=== PATIENT | male | born 1930 | race Hispanic/Latino ===

== ENCOUNTER 2018-04-13 07:18 | Inpatient (IN) | payer MEDICARE, MEDICAID ==
[2018-04-13 07:44] VITALS: BMI 28.3
[2018-04-13 08:17] LABS: BASO % 0.7 % (0.0-2.0); EOS # 0.1 K/uL (0.0-0.7); EOS % 2.2 % (0.0-4.0); LYMPH # 1.3 K/uL (1.0-4.3); LYMPH % 20.5 % (20.0-40.0); MEAN CELL VOLUME 90.3 fL (80.0-94.0); MEAN CORPUSCULAR HEMOGLOBIN 29.9 pg (27.0-31.0); MEAN CORPUSCULAR HGB CONC 33.1 g/dL (33.0-37.0); MEAN PLATELET VOLUME 9.1 fL (7.2-11.7); MONO # 0.5 K/uL (0.0-0.8); MONO % 7.9 % (0.0-10.0); NEUT # 4.4 K/uL (1.8-7.0); NEUT % 68.7 % (50.0-75.0); RBC 3.35 Mil/uL (4.40-5.90); RED CELL DISTRIBUTION WIDTH 14.8 % (11.5-14.5); WHITE BLOOD COUNT 6.4 K/uL (4.8-10.8)
[2018-04-13 08:33] LABS: ALBUMIN 3.5 g/dL (3.5-5.0); ALT/SGPT 15 U/L (21-72); AST/SGOT 16 U/L (17-59); BLOOD UREA NITROGEN 56 mg/dL (9-20); CALCIUM 8.9 mg/dl (8.6-10.4); GFR AFRICAN-AMERICAN 23; GFR NON-AFRICAN AMERICAN 19; LIPASE 162 U/L (23-300)
--- NOTE | 2018-04-13 08:37 | RAD ---
PROCEDURE: CHEST RADIOGRAPH, 1 VIEW HISTORY: Abdominal pain COMPARISON: None available. FINDINGS: LUNGS: The lungs are clear. PLEURA: No pneumothorax or pleural fluid seen. CARDIOVASCULAR: Normal. 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 VISUALIZED UPPER ABDOMEN: Normal. OTHER FINDINGS: None. IMPRESSION: No active pulmonary disease.
[2018-04-13 09:20] LABS: SQUAMOUS EPITHIAL < 1 /hpf (0-5); URINE BACTERIA MANY (<OCC); URINE BILIRUBIN NEGATIVE (NEGATIVE); URINE BLOOD 1+ (NEGATIVE); URINE CLARITY Hazy (Clear); URINE COLOR Yellow (YELLOW); URINE GLUCOSE (UA) NORMAL (Normal); URINE LEUKOCYTE ESTERASE 3+ Leu/uL (Negative); URINE PROTEIN 1+ mg/dL (NEGATIVE); URINE UROBILINOGEN NORMAL mg/dL (0.2-1.0)
--- NOTE | 2018-04-13 09:43 | C.PDOC ---
History Of Present Illness 87 y/o male, w/ PMhx of BPH, presents to the ER complaining of abdominal pain which has been present for the past 2 days. Patient states that the pain is located near the the umbilicus. Patient denies having nausea, vomiting, diarrhea , fever, chills, CP, and SOB. According to the family of patient, they discussed the case with Dr. Markel Johnson, urologist, who referred the patient to the ER. Time Seen by Provider: 04/13/18 07:23 Chief Complaint (Nursing): Abdominal Pain History Per: Patient History/Exam Limitations: no limitations Onset/Duration Of Symptoms: Days Current Symptoms Are (Timing): Still Present Severity: Moderate Past Medical History Reviewed: Historical Data, Nursing Documentation, Vital Signs Vital Signs: Last Vital Signs Temp 98.0 F 04/15/18 08:10 Pulse 61 04/15/18 08:10 Resp 20 04/15/18 08:10 BP 147/65 04/15/18 08:10 Pulse Ox 98 04/15/18 08:10 - Medical History PMH: Benign Prostatic Hyperplasia, Hypothyroidism, Multiple Sclerosis Surgical History: No Surg Hx - [facility] Procedures INSERT INDWELLING CATH (11/15/13) Family History: States: No Known Family Hx - Social History Hx Tobacco Use: No Hx Alcohol Use: No Hx Substance Use: No - Immunization History Hx Tetanus Toxoid Vaccination: No Hx Influenza Vaccination: Yes (2017) Hx Pneumococcal Vaccination: No Review Of Systems Except As Marked, All Systems Reviewed And Found Negative. Constitutional: Negative for: Fever, Chills Cardiovascular: Negative for: Chest Pain Respiratory: Negative for: Shortness of Breath Gastrointestinal: Positive for: Abdominal Pain. Negative for: Nausea, Vomiting , Diarrhea Physical Exam - Physical Exam Appears: Non-toxic, No Acute Distress Skin: Normal Color, Warm, Dry Head: Atraumatic, Normacephalic Eye(s): bilateral: Normal Inspection Nose: Normal Oral Mucosa: Moist Neck: Supple Chest: Symmetrical Cardiovascular: Rhythm Regular Respiratory: Normal Breath Sounds, No Rales, No Rhonchi, No Wheezing Gastrointestinal/Abdominal: Bowel Sounds ((+) bowel sounds), Soft, Tenderness ( tenderness to periumbilical region), No Guarding, No Rebound Neurological/Psych: Oriented x3, Normal Speech ED Course And Treatment - Laboratory Results Result Diagrams: 04/15/18 06:16 04/15/18 06:16 ECG: Interpreted By Me, Viewed By Me ECG Rhythm: Sinus Rhythm ECG Interpretation: Normal Interpretation Of ECG: NSR with normal intervals, normal axises, and no ST/ T wave abnormalities Rate From EC O2 Sat by Pulse Oximetry: 99 (RA) Pulse Ox Interpretation: Normal Medical Decision Making Medical Decision Making: Assessment: Abdominal Pain Plan: --Labs --UA --CT-Abd &Pelv. --CXR Updates: 7:45 AM Case discussed with Dr. Markel Johnson. Dr. Johnson will come to evaluate patient in ER. 12:00 PM Call placed to Dr. Johnson. Dr. Johnson is in a meeting , will call back. 12:30 PM Case discussed with Dr. Johnson. Dr. Johnson will come to see patient and place Cervantes Catheter. Disposition Discussed With Dr.: Shade Aparicio Doctor Will See Patient In The: ED Counseled Patient/Family Regarding: Studies Performed, Diagnosis - Disposition Disposition: HOSPITALIZED Disposition Time: 13:17 Condition: FAIR - Clinical Impression Clinical Impression: Abdominal pain, UTI (urinary tract infection), Hydroureter - Scribe Statement The provider has reviewed the documentation as recorded by the Darlineibe Claudio Summers Provider Attestation: All medical record entries made by the Darlineibsukumar were at my direction and personally dictated by me. I have reviewed the chart and agree that the record accurately reflects my personal performance of the history, physical exam, medical decision making, and the department course for this patient. I have also personally directed, reviewed, and agree with the discharge instructions and disposition.
--- NOTE | 2018-04-13 11:42 | CT ---
PROCEDURE: CT Abdomen and Pelvis without intravenous contrast HISTORY: abd pain COMPARISON: 03/11/2016 TECHNIQUE: Without contrast.. Contrast dose: 0 Radiation dose: Total exam DLP = 960.54 mGy-cm. This CT exam was performed using one or more of the following dose reduction techniques: Automated exposure control, adjustment of the mA and/or kV according to patient size, and/or use of iterative reconstruction technique. FINDINGS: LOWER THORAX: Minimal linear scar/ atelectasis left lower lobe. Interstitial coarsening both lower lobes common nonspecific. Small pericardial effusion. Mild cardiomegaly. LIVER: Unremarkable. No gross lesion or ductal dilatation. GALLBLADDER AND BILE DUCTS: Unremarkable. PANCREAS: Unremarkable. No gross lesion or ductal dilatation. SPLEEN: Unremarkable. ADRENALS: Unremarkable. No mass. KIDNEYS AND URETERS: Moderate right and severe left hydronephrosis. Severe left renal cortical thinning. No mass or calculus. Bilateral hydroureter. No ureteral calculus. The extent of hydronephrosis/ hydroureter is essentially unchanged since 03/11/2016. VASCULATURE: Unremarkable. No aortic aneurysm. BOWEL: Extensive retained feces in rectum. Diverticulosis of descending/sigmoid colon without evidence of diverticulitis. No evidence of bowel obstruction. APPENDIX: Unremarkable. Normal appendix. PERITONEUM: Left inguinal hernia containing only mesenteric fat. No bowel herniation. . No free fluid. No free air. LYMPH NODES: Unremarkable. No enlarged lymph nodes. BLADDER: Suboptimally distended. Diffusely thick-walled ,nonspecific. REPRODUCTIVE: TURP defect within normal size prostate. BONES: No acute fracture. Left hip prosthesis. OTHER FINDINGS: None. IMPRESSION: Thick walled bladder with bilateral hydroureteronephrosis. Extensive left renal cortical thickening. Left inguinal hernia containing only mesenteric fat. Small pericardial effusion common nonspecific. Status post TURP. Extensive retained feces in rectum. Left hip prosthesis.
--- NOTE | 2018-04-13 13:53 | CP.PCM.HP ---
<SegundoJaqueline GrewalEri - Last Filed: 04/13/18 18:27> History of Present Illness - History of Present Illness History of Present Illness: Code status: Full code CC: abdominal pain for 2 days HPI: 87-year-old male with past medical history of recurrent UTI, BPH, multiple sclerosis, depression, hypothyroidism who presents to the ED for evaluation of abdominal pain x 2 days. and daughter are at bedside assisting with history. Patient was diagnosed with MS 40 years ago, no longer takes medications , no longer follows with a neurologist. and daughter state he "has completed all regimens for MS and he doesn't want any of it anymore." Patient has bowel and bladder incontinence secondary to MS and is generally immobile requiring assistance from bed to wheelchair. and daughter report that patient often has UTIs which are treated with antibiotics with symptom resolution for about 1 week. Patient reports periumbilical abdominal pain for 2 days with no radiation. Patient recently completed 14-day course of Macrobid with no resolution of symptoms, but he reports subjectively feeling better. reports 2 days of cloudy urine, denies blood in urine. Patient also reports recent cough and mild constipation (no BM today, regularly has BM daily) . Patient denies fever/chills, chest pain, shortness of breath, nausea, vomiting , diarrhea, dizziness, weight change. Patient's daughter notes that he was diagnosed with depression and started on medication (Lexapro 10mg PO daily) about 1 year ago after the of his daughter due to cervical cancer. PMD: Dr. Zoey Quiñones Urologist: Dr. Therese Johnson Pharmacy: [facility] Past medical history: recurrent UTI, BPH, multiple sclerosis, depression, hypothyroidism Past surgical history: unknown prostate procedure 5 years ago, no complications ; left hip replacement 15 years ago Medications: tamsulosin 0.4mg PO daily, escitalopram 10mg PO daily, levothyroxine 100mcg PO daily, doxazosin 2mg PO daily, folic acid 1mg PO daily, ASA 81mg PO daily, trazodone 50mg PO daily, nasal spray, vitamin E Allergies: NKDA Family history: daughter () with history of cervical cancer; no known family history of cardiac disease Social history: former smoker (30+ years ago); denies drug/alcohol use; 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 absent: Constipation, Diarrhea, Nausea, Vomiting - Genitourinary Genitourinary: Urinary Incontinence. absent: Hematuria - Musculoskeletal Musculoskeletal: Other (immobile from the waist down ) - Neurological Neurological: absent: Headaches - Psychiatric Psychiatric: Depression Past Patient History - Past Social History Smoking Status: Former Smoker - NEUROLOGICAL Hx Multiple Sclerosis: Yes - ENDOCRINE/METABOLIC Hx Hypothyroidism: Yes - GENITOURINARY/GYNECOLOGICAL Hx Genitourinary Disorders: Yes - PSYCHIATRIC Hx Substance Use: No Meds Allergies/Adverse Reactions: Allergies Allergy/AdvReac Type Severity Reaction Status Date / Time No Known Allergies Allergy Verified 04/13/18 07:43 Physical Exam - Constitutional Appears: Non-toxic, No Acute Distress, Chronically Ill - Head Exam Head Exam: ATRAUMATIC, NORMAL INSPECTION - Eye Exam Eye Exam: EOMI, Normal appearance - ENT Exam ENT Exam: Mucous Membranes Dry - Respiratory Exam Respiratory Exam: Clear to Auscultation Bilateral, NORMAL BREATHING PATTERN - Cardiovascular Exam Cardiovascular Exam: REGULAR RHYTHM, +S1, +S2 - GI/Abdominal Exam GI & Abdominal Exam: Normal Bowel Sounds, Soft. absent: Tenderness - Extremities Exam Extremities exam: Negative for: tenderness - Neurological Exam Neurological exam: Alert, Oriented x3 - Expanded Neurological Exam Expanded Neuro motor strength exam: Left Lower Extremity: 0, Right Lower Extremity: 0 Coma Scale Eye Opening: SPONTANEOUS Coma Scale Motor Response: OBEYS COMMANDS - Psychiatric Exam Psychiatric exam: Flat Affect - Skin Skin Exam: Dry, Intact, Normal Color Additional comments: Skin intact - no ulcers seen on scarum or juan prominences Results - Vital Signs Recent Vital Signs: Last Vital Signs Temp 98.6 F 04/13/18 11:32 Pulse 59 L 04/13/18 11:32 Resp 17 04/13/18 11:32 BP 143/58 L 04/13/18 11:32 Pulse Ox 99 04/13/18 13:22 - Labs Result Diagrams: 04/13/18 08:12 04/13/18 08:12 Labs: Laboratory Results - last 24 hr 04/13/18 04/13/1818 08:12 08:12 09:07 WBC 6.4 RBC 3.35 L Hgb 10.0 L D Hct 30.2 L MCV 90.3 MCH 29.9 MCHC 33.1 RDW 14.8 H Plt Count 188 MPV 9.1 Neut % (Auto) 68.7 Lymph % (Auto) 20.5 [place] % (Auto) 7.9 Eos % (Auto) 2.2 Baso % (Auto) 0.7 Neut # (Auto) 4.4 Lymph # (Auto) 1.3 [place] # (Auto) 0.5 Eos # (Auto) 0.1 Baso # (Auto) 0.0 Sodium 144 Potassium 5.3 H Chloride 111 H Carbon Dioxide 23 Anion Gap 16 BUN 56 H Creatinine 3.1 H Est GFR ( Amer) 23 Est GFR (Non-Af Amer) 19 Random Glucose 106 Calcium 8.9 Total Bilirubin 0.5 AST 16 L ALT 15 L Alkaline Phosphatase 72 Troponin I < 0.0120 Total Protein 7.1 Albumin 3.5 Globulin 3.5 Albumin/Globulin Ratio 1.0 Lipase 162 Urine Color Yellow Urine Clarity Hazy Urine pH 6.0 Ur Specific [place] 1.010 Urine Protein 1+ H Urine Glucose (UA) Normal Urine Ketones Negative Urine Blood 1+ H Urine Nitrate Positive H Urine Bilirubin Negative Urine Urobilinogen Normal Ur Leukocyte Esterase 3+ H Urine WBC (Auto) 1068 H Urine RBC (Auto) 11 H Ur Squamous Epith Cells < 1 Urine Bacteria Many H Assessment & Plan - Assessment and Plan (Free Text) Assessment: 87-year-old male with past medical history of recurrent UTI, BPH, multiple sclerosis, depression, hypothyroidism with complicated UTI UTI - Urology consult: Dr. Therese Johnson --> help appreciated - UA: 1+ protein, 1+ blood, positive nitrate, 3+ leukocyte esterase, 1068 WBC, 11 RBC, Many bacteria - f/u blood cultures, urine culture - Medications: * Ceftriaxone 1gm IV daily * NS @ 50 cc/hr Bilateral hydroureteronephrosis - Nephrology consult deferred at this time as recommended by Dr. Johnson - CT abdomen/pelvis (04/13/18): Thick walled bladder with bilateral hydroureteronephrosis. Extensive left renal cortical thickening. Left inguinal hernia containing only mesenteric fat. Small pericardial effusion common nonspecific. Status post TURP. Extensive retained feces in rectum. Left hip prosthesis. - Chest x-ray (04/13/18): Minimal bibasilar subsegmental atelectasis. Limited examination. - f/u ECHO - Further management per Dr. Johnson Fecal impaction - Monitor for BM - Medications: * Colace 100mg PO TID * Miralax 17gm PO daily Hyperkalemia - K 5.3 on admission - No acute changes on ECG - f/u ECHO - Continue to trend and monitor CKD stage 4 - Nephrology consult deferred at this time as recommended by Dr. Johnson - BUN/Cr 56/3.1 on admission - GFR 19 on admission - Likely secondary to chronic hydroureteronephrosis - Continue to trend and monitor History of Anemia - Hgb 10.0 on admission - Continue to trend and monitor History of BPH - Urology consult: Dr. Therese Johnson --> help appreciated - Continue home medications: tamsulosin 0.4mg PO daily, doxazosin 2mg PO daily - Further management per Dr. Johnson History of MS - Stable at this time - Patient cannot move from the waist down - Turn patient q2h - PT/OT evaluation History of Hypothyroidism - Continue home medication: levothyroxine 100mcg PO daily History of Depression - Continue home medications: * escitalopram 10mg PO daily, * trazodone 50mg PO daily Prophylaxis - VTE prophylaxis: heparin 5000u SC Q8 - SCDs - Bilateral Prevalon heel protector boots - Decubitus ulcer prophylaxis: reposition Q2H - Heart healthy diet with Florastor Case discussed with Dr. Mike Segundo PGY-1 <Rocio Mckeon V - Last Filed: 04/15/18 13:13> Results - Vital Signs Recent Vital Signs: Last Vital Signs Temp 98.0 F 04/15/18 08:10 Pulse 61 04/15/18 08:10 Resp 20 04/15/18 08:10 BP 147/65 04/15/18 08:10 Pulse Ox 98 04/15/18 08:10 - Labs Result Diagrams: 04/15/18 06:16 04/15/18 06:16 Labs: Laboratory Results - last 24 hr 04/15/18 04/15/18 06:16 06:16 WBC 6.8 RBC 3.01 L Hgb 9.1 L Hct 27.1 L MCV 90.1 MCH 30.4 MCHC 33.7 RDW 14.7 H Plt Count 163 MPV 9.3 Neut % (Auto) 67.0 Lymph % (Auto) 22.1 [place] % (Auto) 8.6 Eos % (Auto) 1.8 Baso % (Auto) 0.5 Neut # (Auto) 4.6 Lymph # (Auto) 1.5 [place] # (Auto) 0.6 Eos # (Auto) 0.1 Baso # (Auto) 0.0 Sodium 145 Potassium 4.9 Chloride 115 H Carbon Dioxide 19 L Anion Gap 16 BUN 49 H Creatinine 2.7 H Est GFR ( Amer) 27 Est GFR (Non-Af Amer) 23 Random Glucose 96 Calcium 8.7 Phosphorus 3.7 Magnesium 2.1 Total Bilirubin 0.4 AST 16 L ALT 19 L Alkaline Phosphatase 61 Total Protein 6.3 Albumin 3.2 L Globulin 3.1 Albumin/Globulin Ratio 1.0 Attending/Attestation - Attestation I have personally seen and examined this patient.: Yes I have fully participated in the care of the patient.: Yes I have reviewed all pertinent clinical information: Yes Notes (Text): This is late computer entry for 04/13/18. Patient seen, examined and case discussed with day-time resident. Patient seen in [facility] Bed 3 in the emergency room approximately 2:30PM on 04/13/18. Patient seen with his daughter and at bedside. patient allows for his medical information to be shared with his family members. Patient with history of MS about 40 years duration, has not seen a neurologist in many years, reportedly has tried every available treatment, comes in following treatment of urinary tract symptoms with PO antibiotics X2 (macrobid) . Patient noted for urinary incontience. and patient is unclear in regards to hesistancy or decreased stream because he wears diapers. patient noted history of enlarged prostate, stage 4 ckd, anemia, and chronic hydroureteonephrosis. Discussed case with Dr. Markel Johnson, there is no plans for any intervention. Concern for fecal impaction and urinary retention which is affecting renal function. Reports patient has a little/no parenchyma of the kidney. Recommended for bowel regimen and possible GI/surgery intervention. I spoke with the , patient does go the bathroom but did not go this morning. Admitting orders discussed with Resident. Clarifications in assessment/plan noted below. Assessment/Plan 1) Complicated UTI Assessment/Plan * failed PO antibiotics twice as outpatient, hx of enlarged prostate, urinary incontience * Urology consult: Dr. Therese Johnson --> help appreciated * UA: 1+ protein, 1+ blood, positive nitrate, 3+ leukocyte esterase, 1068 WBC, 11 RBC, Many bacteria * f/u blood cultures, urine culture * Medications: * Received dose of Rocephin in the ED * Ceftriaxone 1gm IV daily * Gentle IV hydration * NS @ 50 cc/hr 2) Bilateral hydroureteronephrosis Assessment/Plan * Nephrology consult deferred at this time * CT abdomen/pelvis (04/13/18): Thick walled bladder with bilateral hydroureteronephrosis. Extensive left renal cortical thickening. Left inguinal hernia containing only mesenteric fat. Small pericardial effusion common nonspecific. Status post TURP. Extensive retained feces in rectum. Left hip prosthesis. * Chest x-ray (04/13/18): Minimal bibasilar subsegmental atelectasis. Limited examination. * f/u ECHO * Further management per Dr. Johnson-->no surgery intervention * Monitor urinary output 3) Fecal impaction Assessment/Plan * Monitor for BM * CT abdomen/pelvis (04/13/18): Thick walled bladder with bilateral hydroureteronephrosis. Extensive left renal cortical thickening. Left inguinal hernia containing only mesenteric fat. Small pericardial effusion common nonspecific. Status post TURP. Extensive retained feces in rectum. Left hip prosthesis. * Medications: * Colace 100mg PO TID * Miralax 17gm PO daily * Will attempt conservative management prior to consult GI/General surgery 4) Hyperkalemia Assessment/Plan * K 5.3 on admission * No acute changes on ECG * Continue to trend and monitor 5) CKD stage 4 History of urinary retention Acute on Chronic Renal Disease Assessment/Plan * Urology (Dr. Therese Johnson) on board * BUN/Cr 56/3.1 on admission prior Cr: 2.3; GFR 19 on admission * Likely secondary to chronic hydroureteronephrosis * Continue to trend and monitor 6) History of Anemia Assessment/Plan * likely anemia of chronic disease given renal status * Hgb 10.0 on admission * Continue to trend and monitor 7) History of BPH Assessment/Plan * Urology consult: Dr. Therese Johnson --> help appreciated * Continue home medications: tamsulosin 0.4mg PO daily, doxazosin 2mg PO daily * Further management per Dr. Johnson 8) History of MS * Stable at this time * Patient cannot move from the waist down; spascity noted over lower extremities * Patient does not have neurologist and per family has tried maximally therapies in the past * Turn patient q2h to prevent sacral decub * PT/OT evaluation 9) History of Hypothyroidism * Continue home medication: levothyroxine 100mcg PO daily 10) History of Depression * Continue home medications: * escitalopram 10mg PO daily * trazodone 50mg PO daily 11) Prophylaxis * VTE prophylaxis: heparin 5000u SC Q8 * SCDs * Bilateral Prevalon heel protector boots * Decubitus ulcer prophylaxis: reposition Q2H * Heart healthy diet with Florastor 250mg PO BID
[2018-04-13 14:19] LABS: INR 1.1; PROTHROMBIN TIME 11.6 SECONDS (9.7-12.2)
--- NOTE | 2018-04-13 15:37 | RAD ---
HISTORY: baseline admission COMPARISON: 04/13/2018 at 8:20 a.m. FINDINGS: LUNGS: Minimal bibasilar subsegmental atelectasis. No infiltrate. Examination limited due to steep oblique positioning of the patient. PLEURA: No significant pleural effusion identified, no pneumothorax apparent. CARDIOVASCULAR: Normal. OSSEOUS STRUCTURES: No significant abnormalities. VISUALIZED UPPER ABDOMEN: Normal. OTHER FINDINGS: None. IMPRESSION: Minimal bibasilar subsegmental atelectasis. Limited examination.
[2018-04-13] MEDS: POLYETHYLENE GLYCOL 3350 17 GM/Dose PACKET PO SCH (17:57)
[2018-04-13] MEDS: Sodium Chloride 0.9% 1,000 ML IV SCH (17:57)
[2018-04-13] MEDS: Saccharomyces Boulardi 250 mg Cap PO SCH (22:02)
--- NOTE | 2018-04-13 22:51 | CP.PCM.CON ---
Past Patient History - Past Medical History & Family History Past Medical History?: Yes - Past Social History Smoking Status: Former Smoker - NEUROLOGICAL Hx Multiple Sclerosis: Yes - ENDOCRINE/METABOLIC Hx Hypothyroidism: Yes - MUSCULOSKELETAL/RHEUMATOLOGICAL Hx Falls: No - GENITOURINARY/GYNECOLOGICAL Hx Genitourinary Disorders: Yes - PSYCHIATRIC Hx Substance Use: No - ANESTHESIA Hx Anesthesia: No Meds Allergies/Adverse Reactions: Allergies Allergy/AdvReac Type Severity Reaction Status Date / Time No Known Allergies Allergy Verified 04/13/18 07:43 - Medications Medications: Current Medications Aspirin (Ecotrin) 81 mg PO DAILY [facility] Docusate Sodium (Colace) 100 mg PO TID [facility] Last Admin: 04/13/18 17:58 Dose: 100 mg Doxazosin Mesylate (Cardura) 2 mg PO DAILY [facility] Escitalopram Oxalate (Lexapro) 10 mg PO DAILY [facility] Heparin Sodium (Porcine) (Heparin) 5,000 units SC Q8 [facility] Last Admin: 04/13/18 22:02 Dose: 5,000 units Ceftriaxone Sodium 1 gm/ (Sodium Chloride) 100 mls @ 100 mls/hr IVPB DAILY [facility] PRN Reason: Protocol Sodium Chloride (Sodium Chloride 0.9%) 1,000 mls @ 50 mls/hr IV .Q20H [facility] Last Admin: 04/13/18 17:57 Dose: 50 mls/hr Levothyroxine Sodium (Synthroid) 100 mcg PO DAILY@0630 [facility] Pneumococcal Polyvalent Vaccine (Pneumovax 23 Vaccine) 0.5 ml IM .ONCE ONE Stop: 04/15/18 10:01 Polyethylene Glycol (Miralax) 17 gm PO DAILY [facility] Last Admin: 04/13/18 17:57 Dose: 17 gm Saccharomyces Boulardii (Florastor) 250 mg PO DAILY [facility] Last Admin: 04/13/18 22:02 Dose: 250 mg Tamsulosin HCl (Flomax) 0.4 mg PO DAILY [facility] Trazodone HCl (Desyrel) 50 mg PO HS [facility] Last Admin: 04/13/18 22:02 Dose: 50 mg Results - Vital Signs Recent Vital Signs: Last Vital Signs Temp 97.4 F L 04/13/18 16:00 Pulse 70 04/13/18 16:00 Resp 20 04/13/18 16:00 BP 125/57 L 04/13/18 16:00 Pulse Ox 97 04/13/18 16:00 - Labs Result Diagrams: 04/13/18 08:12 04/13/18 08:12 Labs: Laboratory Results - last 24 hr 04/13/18 04/13/18 04/13/18 08:12 08:12 09:07 WBC 6.4 RBC 3.35 L Hgb 10.0 L D Hct 30.2 L MCV 90.3 MCH 29.9 MCHC 33.1 RDW 14.8 H Plt Count 188 MPV 9.1 Neut % (Auto) 68.7 Lymph % (Auto) 20.5 [place] % (Auto) 7.9 Eos % (Auto) 2.2 Baso % (Auto) 0.7 Neut # (Auto) 4.4 Lymph # (Auto) 1.3 [place] # (Auto) 0.5 Eos # (Auto) 0.1 Baso # (Auto) 0.0 PT INR Sodium 144 Potassium 5.3 H Chloride 111 H Carbon Dioxide 23 Anion Gap 16 BUN 56 H Creatinine 3.1 H Est GFR ( Amer) 23 Est GFR (Non-Af Amer) 19 Random Glucose 106 Calcium 8.9 Total Bilirubin 0.5 AST 16 L ALT 15 L Alkaline Phosphatase 72 Troponin I < 0.0120 Total Protein 7.1 Albumin 3.5 Globulin 3.5 Albumin/Globulin Ratio 1.0 Lipase 162 Urine Color Yellow Urine Clarity Hazy Urine pH 6.0 Ur Specific [place] 1.010 Urine Protein 1+ H Urine Glucose (UA) Normal Urine Ketones Negative Urine Blood 1+ H Urine Nitrate Positive H Urine Bilirubin Negative Urine Urobilinogen Normal Ur Leukocyte Esterase 3+ H Urine WBC (Auto) 1068 H Urine RBC (Auto) 11 H Ur Squamous Epith Cells < 1 Urine Bacteria Many H 04/13/18 14:06 WBC RBC Hgb Hct MCV MCH MCHC RDW Plt Count MPV Neut % (Auto) Lymph % (Auto) [place] % (Auto) Eos % (Auto) Baso % (Auto) Neut # (Auto) Lymph # (Auto) [place] # (Auto) Eos # (Auto) Baso # (Auto) PT 11.6 INR 1.1 Sodium Potassium Chloride Carbon Dioxide Anion Gap BUN Creatinine Est GFR ( Amer) Est GFR (Non-Af Amer) Random Glucose Calcium Total Bilirubin AST ALT Alkaline Phosphatase Troponin I Total Protein Albumin Globulin Albumin/Globulin Ratio Lipase Urine Color Urine Clarity Urine pH Ur Specific [place] Urine Protein Urine Glucose (UA) Urine Ketones Urine Blood Urine Nitrate Urine Bilirubin Urine Urobilinogen Ur Leukocyte Esterase Urine WBC (Auto) Urine RBC (Auto) Ur Squamous Epith Cells Urine Bacteria Assessment & Plan - Assessment and Plan (Free Text) Assessment: IMP: azotemia Bilat hydronephrosis L>R Multiple sclerosis Fecal impaction Full note to be dictated YS - Date & Time Date: 04/13/18 Time: 11:30
[2018-04-14] MEDS: Levothyroxine 100 MCG TAB PO SCH (06:11)
[2018-04-14 06:58] LABS: BASO % 0.5 % (0.0-2.0); EOS # 0.1 K/uL (0.0-0.7); EOS % 1.6 % (0.0-4.0); HEMOGLOBIN 9.4 g/dL (12.0-18.0); LYMPH # 1.5 K/uL (1.0-4.3); LYMPH % 24.1 % (20.0-40.0); MEAN CELL VOLUME 89.8 fL (80.0-94.0); MEAN CORPUSCULAR HEMOGLOBIN 30.7 pg (27.0-31.0); MEAN CORPUSCULAR HGB CONC 34.2 g/dL (33.0-37.0); MEAN PLATELET VOLUME 9.2 fL (7.2-11.7); MONO # 0.6 K/uL (0.0-0.8); MONO % 8.6 % (0.0-10.0); NEUT # 4.2 K/uL (1.8-7.0); NEUT % 65.2 % (50.0-75.0); NRBC % 0.1 % (0.0-2.0); RBC 3.06 Mil/uL (4.40-5.90); RED CELL DISTRIBUTION WIDTH 14.5 % (11.5-14.5); WHITE BLOOD COUNT 6.4 K/uL (4.8-10.8)
[2018-04-14 07:06] LABS: INR 1.1; PROTHROMBIN TIME 12.1 SECONDS (9.7-12.2)
[2018-04-14 07:37] LABS: ALB/GLOB RATIO 1.1 (1.0-2.1); ALBUMIN 3.4 g/dL (3.5-5.0); CALCIUM 8.8 mg/dl (8.6-10.4)
--- NOTE | 2018-04-14 07:46 | CP.PCM.PN ---
Subjective - Date & Time of Evaluation Date of Evaluation: 04/14/18 Time of Evaluation: 07:00 - Subjective Subjective: Medicine Progress Note: Patient was seen and examined at bedside in the AM. Patient states he does not have current abdominal pain as it comes and goes. Patient states he did have a bowel movement yesterday. Objective - Vital Signs/Intake and Output Vital Signs (last 24 hours): Temp Pulse Resp BP Pulse Ox 98.3 F 66 20 129/66 98 04/13/18 23:28 04/13/18 23:28 04/13/18 23:28 04/13/18 23:28 04/13/18 23:28 Intake and Output: 04/14/18 04/14/18 06:59 18:59 Intake Total 1070 Output Total 1 Balance 1069 - Medications Medications: Current Medications Aspirin (Ecotrin) 81 mg PO DAILY [facility] Docusate Sodium (Colace) 100 mg PO TID [facility] Last Admin: 04/13/18 17:58 Dose: 100 mg Doxazosin Mesylate (Cardura) 2 mg PO DAILY [facility] Escitalopram Oxalate (Lexapro) 10 mg PO DAILY [facility] Heparin Sodium (Porcine) (Heparin) 5,000 units SC Q8 [facility] Last Admin: 04/14/18 05:59 Dose: 5,000 units Ceftriaxone Sodium 1 gm/ (Sodium Chloride) 100 mls @ 100 mls/hr IVPB DAILY [facility] PRN Reason: Protocol Sodium Chloride (Sodium Chloride 0.9%) 1,000 mls @ 50 mls/hr IV .Q20H [facility] Last Admin: 04/13/18 17:57 Dose: 50 mls/hr Levothyroxine Sodium (Synthroid) 100 mcg PO DAILY@0630 [facility] Last Admin: 04/14/18 06:11 Dose: 100 mcg Pneumococcal Polyvalent Vaccine (Pneumovax 23 Vaccine) 0.5 ml IM .ONCE ONE Stop: 04/15/18 10:01 Polyethylene Glycol (Miralax) 17 gm PO DAILY [facility] Last Admin: 04/13/18 17:57 Dose: 17 gm Saccharomyces Boulardii (Florastor) 250 mg PO DAILY [facility] Last Admin: 04/13/18 22:02 Dose: 250 mg Tamsulosin HCl (Flomax) 0.4 mg PO DAILY [facility] Trazodone HCl (Desyrel) 50 mg PO HS [facility] Last Admin: 04/13/18 22:02 Dose: 50 mg - Labs Labs: 04/14/18 06:53 04/14/18 06:53 PT 12.1 SECONDS (9.7-12.2) 04/14/18 06:53 INR 1.1 04/14/18 06:53 APTT 33 SECONDS (21-34) 04/14/18 06:53 - Constitutional Appears: No Acute Distress, Chronically Ill - Head Exam Head Exam: ATRAUMATIC, NORMAL INSPECTION - Eye Exam Eye Exam: EOMI, Normal appearance - ENT Exam ENT Exam: Mucous Membranes Moist - Respiratory Exam Respiratory Exam: Clear to Ausculation Bilateral, NORMAL BREATHING PATTERN - Cardiovascular Exam Cardiovascular Exam: REGULAR RHYTHM, +S1, +S2 - GI/Abdominal Exam GI & Abdominal Exam: Soft, Normal Bowel Sounds. absent: Tenderness - Extremities Exam Extremities Exam: absent: Tenderness - Neurological Exam Neurological Exam: Alert, Awake, Oriented x3 Neuro motor strength exam: Left Lower Extremity: 0, Right Lower Extremity: 0 - Psychiatric Exam Psychiatric exam: Normal Affect, Normal Mood - Skin Skin Exam: Normal Color Assessment and Plan - Assessment and Plan (Free Text) Assessment: 87-year-old male with past medical history of recurrent UTI, BPH, multiple sclerosis, depression, hypothyroidism with complicated UTI UTI - Urology consult: Dr. Therese Johnson --> help appreciated - UA: 1+ protein, 1+ blood, positive nitrate, 3+ leukocyte esterase, 1068 WBC, 11 RBC, Many bacteria - f/u blood cultures - Urine culture (04/13/18): Gram negative kory --> f/u final report - [place] Catheter placed - Medications: * Ceftriaxone 1gm IV daily * NS @ 50 cc/hr Bilateral hydroureteronephrosis - Nephrology consult deferred at this time as recommended by Dr. Johnson - CT abdomen/pelvis (04/13/18): Thick walled bladder with bilateral hydroureteronephrosis. Extensive left renal cortical thickening. Left inguinal hernia containing only mesenteric fat. Small pericardial effusion common nonspecific. Status post TURP. Extensive retained feces in rectum. Left hip prosthesis. - Chest x-ray (04/13/18): Minimal bibasilar subsegmental atelectasis. Limited examination. - f/u ECHO - Further management per Dr. Johnson Fecal impaction - Medications: * Colace 100mg PO TID * Miralax 17gm PO daily Hyperkalemia - K 5.3 --> 4.7 - No acute changes on ECG - f/u ECHO - Continue to trend and monitor CKD stage 4 - Nephrology consult deferred at this time as recommended by Dr. Johnson - BUN/Cr 56/3.1 on admission - GFR 19 on admission - Likely secondary to chronic hydroureteronephrosis - Continue to trend and monitor History of Anemia - Hgb 10.0 on admission - Continue to trend and monitor History of BPH - Urology consult: Dr. Therese Johnson --> help appreciated - Continue home medications: tamsulosin 0.4mg PO daily, doxazosin 2mg PO daily - Further management per Dr. Johnson History of MS - Stable at this time - Patient cannot move from the waist down - Turn patient q2h - PT/OT evaluation History of Hypothyroidism - Continue home medication: levothyroxine 100mcg PO daily History of Depression - Continue home medications: * escitalopram 10mg PO daily, * trazodone 50mg PO daily Prophylaxis - VTE prophylaxis: heparin 5000u SC Q8 - SCDs - Bilateral Prevalon heel protector boots - Decubitus ulcer prophylaxis: reposition Q2H - Heart healthy diet with Florastor Case discussed with Dr. Frankie Segundo PGY-1
[2018-04-14] MEDS: POLYETHYLENE GLYCOL 3350 17 GM/Dose PACKET PO SCH (09:50)
[2018-04-14] MEDS: Saccharomyces Boulardi 250 mg Cap PO SCH (10:02)
--- NOTE | 2018-04-14 10:34 | PCM.URO ---
Urology Progress Note - General General: Tolerating Diet - Subjective Abdominal Pain: Yes (less) Flank Pain: No Nausea: No Vomiting: No Voiding Well: No (incontinent) Dysuria: No Hematuria: No Good Stream: Yes Stone Passed: No Dsypnea: No Chest Pain: No Fever & Chills: No - Objective Lab Studies: Reviewed Lab Results Last 24 Hours: Laboratory Results - last 24 hr 04/13/18 04/14/18 04/14/18 14:06 06:53 06:53 WBC 6.4 RBC 3.06 L Hgb 9.4 L Hct 27.5 L MCV 89.8 MCH 30.7 MCHC 34.2 RDW 14.5 Plt Count 172 MPV 9.2 Neut % (Auto) 65.2 Lymph % (Auto) 24.1 [place] % (Auto) 8.6 Eos % (Auto) 1.6 Baso % (Auto) 0.5 Neut # (Auto) 4.2 Lymph # (Auto) 1.5 [place] # (Auto) 0.6 Eos # (Auto) 0.1 Baso # (Auto) 0.0 PT 11.6 INR 1.1 APTT Sodium 145 Potassium 4.7 Chloride 112 H Carbon Dioxide 21 L Anion Gap 16 BUN 56 H Creatinine 3.1 H Est GFR ( Amer) 23 Est GFR (Non-Af Amer) 19 Random Glucose 93 Calcium 8.8 Phosphorus 3.5 Magnesium 2.2 Total Bilirubin 0.6 AST 17 ALT 21 D Alkaline Phosphatase 66 Total Protein 6.4 Albumin 3.4 L Globulin 3.0 Albumin/Globulin Ratio 1.1 04/14/18 06:53 WBC RBC Hgb Hct MCV MCH MCHC RDW Plt Count MPV Neut % (Auto) Lymph % (Auto) [place] % (Auto) Eos % (Auto) Baso % (Auto) Neut # (Auto) Lymph # (Auto) [place] # (Auto) Eos # (Auto) Baso # (Auto) PT 12.1 INR 1.1 APTT 33 Sodium Potassium Chloride Carbon Dioxide Anion Gap BUN Creatinine Est GFR ( Amer) Est GFR (Non-Af Amer) Random Glucose Calcium Phosphorus Magnesium Total Bilirubin AST ALT Alkaline Phosphatase Total Protein Albumin Globulin Albumin/Globulin Ratio Intake & Output: Intake & Output 04/13/18 04/14/18 04/14/18 18:59 06:59 18:59 Intake Total 1070 Output Total 1 Balance 1069 Weight 170 lb Intake: Intake, IV Amount 750 Left Antecubital 750 Oral 320 Output: Urine/Stool Mix 1 Vital Signs: Vital Signs - 24 hr 04/13/18 04/13/18 04/13/18 11:32 13:22 15:10 Temperature 98.6 F 98.2 F Pulse Rate 59 L 72 Respiratory 17 16 Rate Blood Pressure 143/58 L 124/61 O2 Sat by Pulse 98 99 97 Oximetry 04/13/18 04/13/18 04/14/18 16:00 23:28 07:49 Temperature 97.4 F L 98.3 F 98.1 F Pulse Rate 70 66 72 Respiratory 20 20 20 Rate Blood Pressure 125/57 L 129/66 145/69 O2 Sat by Pulse 97 98 96 Oximetry - Physical Exam Abdominal Exam: Soft, Non-Tender, Non-Distended Back: No CVA Tenderness Genitalia: Without Inflammation - Plan Additional Information: IMP: Anemia. Azotemia. Bilat hydronephrosis. Fecal impaction. UTI. P: Rx for fecal impaction. Poss kaplan catheter. Bladder scan to check post void residual. Poss cysto, stent insertion. YS - Date & Time of Note Date: 04/14/18 Time: 10:34
[2018-04-14] MEDS: Sodium Chloride 0.9% 1,000 ML IV SCH ×2 (11:00→17:20)
[2018-04-15] MEDS: Levothyroxine 100 MCG TAB PO SCH (06:19)
[2018-04-15 06:39] LABS: BASO % 0.5 % (0.0-2.0); EOS # 0.1 K/uL (0.0-0.7); EOS % 1.8 % (0.0-4.0); HEMOGLOBIN 9.1 g/dL (12.0-18.0); LYMPH # 1.5 K/uL (1.0-4.3); LYMPH % 22.1 % (20.0-40.0); MEAN CELL VOLUME 90.1 fL (80.0-94.0); MEAN CORPUSCULAR HEMOGLOBIN 30.4 pg (27.0-31.0); MEAN CORPUSCULAR HGB CONC 33.7 g/dL (33.0-37.0); MEAN PLATELET VOLUME 9.3 fL (7.2-11.7); MONO # 0.6 K/uL (0.0-0.8); MONO % 8.6 % (0.0-10.0); NEUT # 4.6 K/uL (1.8-7.0); RBC 3.01 Mil/uL (4.40-5.90); RED CELL DISTRIBUTION WIDTH 14.7 % (11.5-14.5); WHITE BLOOD COUNT 6.8 K/uL (4.8-10.8)
[2018-04-15 06:47] LABS: ALBUMIN 3.2 g/dL (3.5-5.0); CALCIUM 8.7 mg/dl (8.6-10.4)
[2018-04-15 08:11] VITALS: RESP 20
--- NOTE | 2018-04-15 08:14 | CON ---
DATE: 04/13/2018 Urology consultation placed by Dr. Shade Aparicio. Urology consultation filled by Dr. Therese Johnson. REASON FOR CONSULTATION: Hydronephrosis. UTI. The patient is an 87-year-old male who presented to the hospital with abdominal pain. The patient has had mid and lower abdominal pain. There has been no recent fever or rigors. No hematuria. No flank pain. The patient reports fair to good appetite. The patient is bed-bound. The patient has history of multiple sclerosis for the past 30 years. The patient has history of previous prostate surgery for retention. The patient has history of recurrent urinary tract infections. The patient has a history of depression and hypothyroidism. The patient has had urinary incontinence. Patient has had fecal incontinence as well. The patient wears a diaper. There has been no nausea or vomiting. MEDICATIONS: See attached report. PAST SURGICAL HISTORY: Prostate surgery. Hip replacement surgery. MEDICATIONS AT HOME: Have included tamsulosin, levothyroxine, doxazosin, vitamins, aspirin, trazodone. The patient was evaluated in the emergency room. He was found to have progression of his renal insufficiency. Usual creatinine is approximately 2, now creatinine is 3. The patient had a CT scan. CT scan revealed bilateral hydronephrosis, left more severe than the right. The patient was also found to have fecal impaction. The bladder was mildly full although not significantly distended. There was bilateral hydronephrosis down to the level of the bladder. The patient lives with his . He does not smoke or drink. The patient has had no recent fever or rigors. No chest pain. PHYSICAL EXAMINATION: GENERAL: The patient is a well-developed, well-nourished elderly male. The patient is awake and alert. ABDOMEN: Soft, nondistended. There is a possible lower abdominal fullness and possible mass to palpation. GENITALIA: Without inflammation. RECTAL: Normal sphincter tone. There is a large amount of semi-formed soft stool. IMPRESSION: Fecal impaction. History of BPH. Bilateral hydronephrosis. Urinary incontinence. Possible urinary tract infection. RECOMMENDATION AND PLAN: Urine culture. Serum PSA. Treatment for fecal impaction. Possible need for Cervantes catheter insertion. When I palpated the abdomen, I suspect that the patient needed a catheter inserted for bladder distention. However, review of the CAT scan revealed that the rectum is significantly more dilated than the bladder. Therefore, I will withhold the Cervantes catheter for now. Possible need for cystoscopy and stent insertion. Further therapy to follow according to the patient's clinical course. Fecal disimpaction is recommended. Therese Johnson MD
[2018-04-15] MEDS ORDERED: Meropenem 1 GM in Sodium Chloride 0.9% 100 ML IVPB SCH (10:00)
[2018-04-15] MEDS: POLYETHYLENE GLYCOL 3350 17 GM/Dose PACKET PO SCH (10:00)
[2018-04-15] MEDS: Saccharomyces Boulardi 250 mg Cap PO SCH (10:00)
[2018-04-15] MEDS ORDERED: Pneumococcal 23-Valent Vaccine IM ONE (10:00)
--- NOTE | 2018-04-15 10:43 | RAD ---
HISTORY: retained feces COMPARISON: No prior. FINDINGS: BOWEL: Retained feces in rectum. No bowel obstruction. No masses or abnormal calcifications. BONES: Left hip arthroplasty. OTHER FINDINGS: None. IMPRESSION: No evidence of bowel obstruction.
[2018-04-15] MEDS ORDERED: Mineral Oil Enema 135 ml RC ONE (11:49)
--- NOTE | 2018-04-15 12:03 | CARD ---
APPROVED REPORT EXAM: Two-dimensional and M-mode echocardiogram with Doppler and color Doppler. Other Information Quality : GoodRhythm : RISK FACTORS Smoking 2D DIMENSIONS IVSd0.9 (0.7-1.1cm)LVDd3.6 (3.9-5.9cm) PWd0.9 (0.7-1.1cm)LVDs2.3 (2.5-4.0cm) FS (%) 36.7 %LVEF (%)67.4 (>50%) M-Mode DIMENSIONS Left Atrium (MM)4.38 (2.5-4.0cm)Aortic Root3.19 (2.2-3.7cm) Aortic Cusp Exc.2.20 (1.5-2.0cm) Aortic Valve AoV Peak Ftdorkej740.1cm/Erwin Peak GR.12mmHgLVOT Peak Dsitennr697.5cm/s Mitral Valve MV E Npcngdfz98.3cm/sMV A Flgetwgc818.6cm/sE/A ratio0.5 TDI E/Lateral E'0.0E/Medial E'0.0 Tricuspid Valve TR Peak Gaysduhx029dq/sTR Peak Gr.76ubQuQDWJ95czAg LEFT VENTRICLE The left ventricle is normal size. There is normal left ventricular wall thickness. The left ventricular function is normal. The left ventricular ejection fraction is within the normal range. There is normal LV segmental wall motion. Transmitral Doppler flow pattern is abnormal. RIGHT VENTRICLE The right ventricle is normal size. ATRIA The left atrium is mildly dilated. The right atrium size is normal. AORTIC VALVE The aortic valve is normal in structure. MITRAL VALVE Mitral regurgitation is trace to mild. TRICUSPID VALVE There is mild tricuspid regurgitation. <Conclusion> Normal LV systolic function. Diastolic dysfunction. Dilated LA. Trace to mild MR. Mild TR.
[2018-04-15 13:27] VITALS: O2SAT 99
--- NOTE | 2018-04-15 15:10 | CP.PCM.PN ---
Subjective - Date & Time of Evaluation Date of Evaluation: 04/15/18 Time of Evaluation: 07:00 - Subjective Subjective: Medicine Progress Note: Patient was seen and examined at bedside in the AM. Patient states he had a small bowel movement this morning. Per denies abdominal pain, nausea or vomiting. Abdominal xray was done which showed fecal retention. Patient was later disimpacted at bed side and fecal matter was removed. Objective - Vital Signs/Intake and Output Vital Signs (last 24 hours): Temp Pulse Resp BP Pulse Ox 98.0 F 61 20 147/65 99 04/15/18 08:10 04/15/18 08:10 04/15/18 08:10 04/15/18 08:10 04/15/18 13:26 Intake and Output: 04/15/18 04/15/18 06:59 18:59 Intake Total 550 Balance 550 - Medications Medications: Current Medications Aspirin (Ecotrin) 81 mg PO DAILY [facility] Last Admin: 04/15/18 10:00 Dose: 81 mg Docusate Sodium (Colace) 100 mg PO TID [facility] Last Admin: 04/15/18 14:42 Dose: 100 mg Doxazosin Mesylate (Cardura) 2 mg PO DAILY [facility] Last Admin: 04/15/18 10:00 Dose: 2 mg Escitalopram Oxalate (Lexapro) 10 mg PO DAILY [facility] Last Admin: 04/15/18 10:00 Dose: 10 mg Heparin Sodium (Porcine) (Heparin) 5,000 units SC Q8 [facility] Last Admin: 04/15/18 14:42 Dose: 5,000 units Meropenem 1 gm/ Sodium (Chloride) 100 mls @ 100 mls/hr IVPB Q12H [facility] PRN Reason: Protocol Last Admin: 04/15/18 10:00 Dose: 100 mls/hr Levothyroxine Sodium (Synthroid) 100 mcg PO DAILY@0630 [facility] Last Admin: 04/15/18 06:19 Dose: 100 mcg Polyethylene Glycol (Miralax) 17 gm PO DAILY [facility] Last Admin: 04/15/18 10:00 Dose: 17 gm Saccharomyces Boulardii (Florastor) 250 mg PO DAILY [facility] Last Admin: 04/15/18 10:00 Dose: 250 mg Tamsulosin HCl (Flomax) 0.4 mg PO DAILY [facility] Last Admin: 04/15/18 10:00 Dose: 0.4 mg Trazodone HCl (Desyrel) 50 mg PO HS [facility] Last Admin: 04/14/18 21:05 Dose: 50 mg - Labs Labs: 04/15/18 06:16 04/15/18 06:16 PT 12.1 SECONDS (9.7-12.2) 04/14/18 06:53 INR 1.1 04/14/18 06:53 APTT 33 SECONDS (21-34) 04/14/18 06:53 - Constitutional Appears: No Acute Distress - Head Exam Head Exam: ATRAUMATIC, NORMAL INSPECTION - Eye Exam Eye Exam: EOMI, Normal appearance - ENT Exam ENT Exam: Mucous Membranes Moist - Respiratory Exam Respiratory Exam: Clear to Ausculation Bilateral, NORMAL BREATHING PATTERN - Cardiovascular Exam Cardiovascular Exam: REGULAR RHYTHM, +S1, +S2 - GI/Abdominal Exam GI & Abdominal Exam: Soft, Normal Bowel Sounds. absent: Tenderness - Rectal Exam Rectal Exam: Fecal Impaction (disimpaction was performed at bedside ). absent: Black Stool, Bloody Stool, Hemorrhoids - Extremities Exam Extremities Exam: Normal Inspection - Neurological Exam Neuro motor strength exam: Left Lower Extremity: 0, Right Lower Extremity: 0 - Psychiatric Exam Psychiatric exam: Normal Affect - Skin Skin Exam: Normal Color Assessment and Plan - Assessment and Plan (Free Text) Assessment: Disposition: Patient stable for discharge pending bowel movement. Patient to take Cefuroxime 250mg bid for 10 days. UTI - Urology consult: Dr. Therese Johnson --> help appreciated - UA: 1+ protein, 1+ blood, positive nitrate, 3+ leukocyte esterase, 1068 WBC, 11 RBC, Many bacteria - f/u blood cultures - Urine culture (04/13/18): E.Coli - [place] Catheter placed - Medications: * Ceftriaxone 1gm IV discontinued because Meropenem had better ILYA so patient was started on Meropenem 1gm q12h IV * Cefuroxime 250mg bid po for 10 days when discharged Bilateral hydroureteronephrosis - Nephrology consult deferred at this time as recommended by Dr. Johnson - CT abdomen/pelvis (04/13/18): Thick walled bladder with bilateral hydroureteronephrosis. Extensive left renal cortical thickening. Left inguinal hernia containing only mesenteric fat. Small pericardial effusion common nonspecific. Status post TURP. Extensive retained feces in rectum. Left hip prosthesis. - Chest x-ray (04/13/18): Minimal bibasilar subsegmental atelectasis. Limited examination. - Further management per Dr. Johnson Fecal impaction - Medications: * Colace 100mg PO TID * Miralax 17gm PO daily - disimpaction was performed successfully 04/15/18 in the afternoon at 2pm Hyperkalemia - K 5.3 --> 4.7 - No acute changes on ECG - ECHO (04/15/18): Normal LV systolic function. EF 67.4%. Diastolic dysfunction ; dilated LA; trace to mild MR; mild TR - Continue to trend and monitor CKD stage 4 - Nephrology consult deferred at this time as recommended by Dr. Johnson - BUN/Cr 56/3.1 on admission - GFR 19 on admission - Likely secondary to chronic hydroureteronephrosis - Continue to trend and monitor History of Anemia - Hgb 10.0 on admission - Continue to trend and monitor History of BPH - Urology consult: Dr. Therese Johnson --> help appreciated - Continue home medications: tamsulosin 0.4mg PO daily, doxazosin 2mg PO daily - Further management per Dr. Johnson History of MS - Stable at this time - Patient cannot move from the waist down - Turn patient q2h - PT/OT evaluation History of Hypothyroidism - Continue home medication: levothyroxine 100mcg PO daily History of Depression - Continue home medications: * escitalopram 10mg PO daily, * trazodone 50mg PO daily Prophylaxis - VTE prophylaxis: heparin 5000u SC Q8 - SCDs - Bilateral Prevalon heel protector boots - Decubitus ulcer prophylaxis: reposition Q2H - Heart healthy diet with Florastor Case discussed with Dr. Frankie Segundo PGY-1
[2018-04-15 16:20] VITALS: BP 141/64; PULSE 67; TEMP 97.5
--- NOTE | 2018-04-15 23:23 | PCM.URO ---
Urology Progress Note - General General: No Complaints, Tolerating Diet - Subjective Abdominal Pain: No Nausea: No Vomiting: No Voiding Well: Yes (incontinent) Dysuria: No Hematuria: No Weak Stream: Yes Stone Passed: No Dsypnea: No Chest Pain: No Fever & Chills: No - Objective Lab Results Last 24 Hours: Laboratory Results - last 24 hr 04/15/18 04/15/18 06:16 06:16 WBC 6.8 RBC 3.01 L Hgb 9.1 L Hct 27.1 L MCV 90.1 MCH 30.4 MCHC 33.7 RDW 14.7 H Plt Count 163 MPV 9.3 Neut % (Auto) 67.0 Lymph % (Auto) 22.1 [place] % (Auto) 8.6 Eos % (Auto) 1.8 Baso % (Auto) 0.5 Neut # (Auto) 4.6 Lymph # (Auto) 1.5 [place] # (Auto) 0.6 Eos # (Auto) 0.1 Baso # (Auto) 0.0 Sodium 145 Potassium 4.9 Chloride 115 H Carbon Dioxide 19 L Anion Gap 16 BUN 49 H Creatinine 2.7 H Est GFR ( Amer) 27 Est GFR (Non-Af Amer) 23 Random Glucose 96 Calcium 8.7 Phosphorus 3.7 Magnesium 2.1 Total Bilirubin 0.4 AST 16 L ALT 19 L Alkaline Phosphatase 61 Total Protein 6.3 Albumin 3.2 L Globulin 3.1 Albumin/Globulin Ratio 1.0 Intake & Output: Intake & Output 04/15/18 04/15/18 04/16/18 06:59 18:59 06:59 Intake Total 550 600 Balance 550 600 Intake: Intake, IV Amount 400 400 Left Antecubital 400 400 Oral 150 200 Other: # Bowel Movements 1 Vital Signs: Vital Signs - 24 hr 04/15/18 04/15/18 04/15/18 00:00 08:10 13:26 Temperature 97.9 F 98.0 F Pulse Rate 58 L 61 Respiratory 18 20 Rate Blood Pressure 144/63 147/65 O2 Sat by Pulse 97 98 99 Oximetry 04/15/18 16:00 Temperature 97.5 F L Pulse Rate 67 Respiratory 20 Rate Blood Pressure 141/64 O2 Sat by Pulse 99 Oximetry - Physical Exam Abdominal Exam: Soft, Non-Tender, Non-Distended Bowel Sounds: Normal Back: No CVA Tenderness Genitalia: Without Inflammation Urine Color: Clear - Male Phallus: Normal - Plan Intake & Output: Yes Additional Information: IMP: Hydronephrosis. Improved renal function. Multiple sclerosis. Fecal impaction. Rec/p: Discussed w resident staff. Fecal impaction t/f. For now, no cystoscopy and stent insertion schedued. Antibiotic rx, for UTI - Date & Time of Note Date: 04/15/18 Time: 13:00
--- NOTE | 2018-04-16 07:31 | CP.PCM.DIS ---
Provider - Provider Date of Admission: 04/13/18 13:14 Attending physician: Emerson David MD Time Spent in preparation of Discharge (in minutes): 40 Hospital Course - Lab Results Lab Results: Micro Results 04/13/18 20:00 Blood Blood Culture - Preliminary NO GROWTH AFTER 48 HOURS 04/13/18 19:45 Blood Blood Culture - Preliminary NO GROWTH AFTER 48 HOURS 04/13/18 09:07 Urine Urine Culture - Final Escherichia Coli Most Recent Lab Values WBC 6.8 K/uL (4.8-10.8) 04/15/18 06:16 RBC 3.01 Mil/uL (4.40-5.90) L 04/15/18 06:16 Hgb 9.1 g/dL (12.0-18.0) L 04/15/18 06:16 Hct 27.1 % (35.0-51.0) L 04/15/18 06:16 MCV 90.1 fL (80.0-94.0) 04/15/18 06:16 MCH 30.4 pg (27.0-31.0) 04/15/18 06:16 MCHC 33.7 g/dL (33.0-37.0) 04/15/18 06:16 RDW 14.7 % (11.5-14.5) H 04/15/18 06:16 Plt Count 163 K/uL (130-400) 04/15/18 06:16 MPV 9.3 fL (7.2-11.7) 04/15/18 06:16 Neut % (Auto) 67.0 % (50.0-75.0) 04/15/18 06:16 Lymph % (Auto) 22.1 % (20.0-40.0) 04/15/18 06:16 [place] % (Auto) 8.6 % (0.0-10.0) 04/15/18 06:16 Eos % (Auto) 1.8 % (0.0-4.0) 04/15/18 06:16 Baso % (Auto) 0.5 % (0.0-2.0) 04/15/18 06:16 Neut # (Auto) 4.6 K/uL (1.8-7.0) 04/15/18 06:16 Lymph # (Auto) 1.5 K/uL (1.0-4.3) 04/15/18 06:16 [place] # (Auto) 0.6 K/uL (0.0-0.8) 04/15/18 06:16 Eos # (Auto) 0.1 K/uL (0.0-0.7) 04/15/18 06:16 Baso # (Auto) 0.0 K/uL (0.0-0.2) 04/15/18 06:16 PT 12.1 SECONDS (9.7-12.2) 04/14/18 06:53 INR 1.1 04/14/18 06:53 APTT 33 SECONDS (21-34) 04/14/18 06:53 Sodium 145 mmol/L (132-148) 04/15/18 06:16 Potassium 4.9 mmol/L (3.6-5.2) 04/15/18 06:16 Chloride 115 mmol/L (98-107) H 04/15/18 06:16 Carbon Dioxide 19 mmol/L (22-30) L 04/15/18 06:16 Anion Gap 16 (10-20) 04/15/18 06:16 BUN 49 mg/dL (9-20) H 04/15/18 06:16 Creatinine 2.7 mg/dL (0.8-1.5) H 04/15/18 06:16 Est GFR ( Amer) 27 04/15/18 06:16 Est GFR (Non-Af Amer) 23 04/15/18 06:16 Random Glucose 96 mg/dL (75-110) 04/15/18 06:16 Calcium 8.7 mg/dl (8.6-10.4) 04/15/18 06:16 Phosphorus 3.7 mg/dL (2.5-4.5) 04/15/18 06:16 Magnesium 2.1 mg/dL (1.6-2.3) 04/15/18 06:16 Total Bilirubin 0.4 mg/dL (0.2-1.3) 04/15/18 06:16 AST 16 U/L (17-59) L 04/15/18 06:16 ALT 19 U/L (21-72) L 04/15/18 06:16 Alkaline Phosphatase 61 U/L (38-126) 04/15/18 06:16 Troponin I < 0.0120 ng/mL (0.00-0.120) 04/13/18 08:12 Total Protein 6.3 g/dL (6.3-8.3) 04/15/18 06:16 Albumin 3.2 g/dL (3.5-5.0) L 04/15/18 06:16 Globulin 3.1 gm/dL (2.2-3.9) 04/15/18 06:16 Albumin/Globulin Ratio 1.0 (1.0-2.1) 04/15/18 06:16 Lipase 162 U/L (23-300) 04/13/18 08:12 Urine Color Yellow (YELLOW) 04/13/18 09:07 Urine Clarity Hazy (Clear) 04/13/18 09:07 Urine pH 6.0 (5.0-8.0) 04/13/18 09:07 Ur Specific [place] 1.010 (1.003-1.030) 04/13/18 09:07 Urine Protein 1+ mg/dL (NEGATIVE) H 04/13/18 09:07 Urine Glucose (UA) Normal mg/dL (Normal) 04/13/18 09:07 Urine Ketones Negative mg/dL (NEGATIVE) 04/13/18 09:07 Urine Blood 1+ (NEGATIVE) H 04/13/18 09:07 Urine Nitrate Positive (NEGATIVE) H 04/13/18 09:07 Urine Bilirubin Negative (NEGATIVE) 04/13/18 09:07 Urine Urobilinogen Normal mg/dL (0.2-1.0) 04/13/18 09:07 Ur Leukocyte Esterase 3+ Ravinder/uL (Negative) H 04/13/18 09:07 Urine WBC (Auto) 1068 /hpf (0-5) H 04/13/18 09:07 Urine RBC (Auto) 11 /hpf (0-3) H 04/13/18 09:07 Ur Squamous Epith Cells < 1 /hpf (0-5) 04/13/18 09:07 Urine Bacteria Many (<OCC) H 04/13/18 09:07 - Hospital Course Hospital Course: HPI: 87-year-old male with past medical history of recurrent UTI, BPH, multiple sclerosis, depression, hypothyroidism who presents to the ED for evaluation of abdominal pain x 2 days. and daughter are at bedside assisting with history. Patient was diagnosed with MS 40 years ago, no longer takes medications , no longer follows with a neurologist. and daughter state he "has completed all regimens for MS and he doesn't want any of it anymore." Patient has bowel and bladder incontinence secondary to MS and is generally immobile requiring assistance from bed to wheelchair. and daughter report that patient often has UTIs which are treated with antibiotics with symptom resolution for about 1 week. Patient reports periumbilical abdominal pain for 2 days with no radiation. Patient recently completed 14-day course of Macrobid with no resolution of symptoms, but he reports subjectively feeling better. reports 2 days of cloudy urine, denies blood in urine. Patient also reports recent cough and mild constipation (no BM today, regularly has BM daily) . Patient denies fever/chills, chest pain, shortness of breath, nausea, vomiting , diarrhea, dizziness, weight change. Patient's daughter notes that he was diagnosed with depression and started on medication (Lexapro 10mg PO daily) about 1 year ago after the of his daughter due to cervical cancer. PMD: Dr. Zoey Quiñones Urologist: Dr. 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 Medications: tamsulosin 0.4mg PO daily, escitalopram 10mg PO daily, levothyroxine 100mcg PO daily, doxazosin 2mg PO daily, folic acid 1mg PO daily, ASA 81mg PO daily, trazodone 50mg PO daily, nasal spray, vitamin E Allergies: NKDA Family history: daughter () with history of cervical cancer; no known family history of cardiac disease Social history: former smoker (30+ years ago); denies drug/alcohol use; 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 Patient was also found to have fecal retention. Patient was disimpacted on 04/15/18. Patient's urologist, Dr. Therese Johnson was also consulted who stated for patient to follow up with him as an out patient. Patient's home medications were restarted. Images: - CT abdomen/pelvis (04/13/18): Thick walled bladder with bilateral hydroureteronephrosis. Extensive left renal cortical thickening. Left inguinal hernia containing only mesenteric fat. Small pericardial effusion common nonspecific. Status post TURP. Extensive retained feces in rectum. Left hip prosthesis. - Chest x-ray (04/13/18): Minimal bibasilar subsegmental atelectasis. Limited examination. Patient is stable for discharge after he has a bowel movement. Patient instructed to take antibiotic for 10 days: Cefuroxime one tablet twice a day with food for 10 days. Please follow up with Dr. Johnson. This is a summary of the patient's hospital course. Refer to full EMR for a complete record. Discharge Exam - Head Exam Head Exam: ATRAUMATIC, NORMAL INSPECTION - Eye Exam Eye Exam: EOMI, Normal appearance - ENT Exam ENT Exam: Mucous Membranes Moist - Respiratory Exam Respiratory Exam: Clear to PA & Lateral, NORMAL BREATHING PATTERN - Cardiovascular Exam Cardiovascular Exam: REGULAR RHYTHM, +S1, +S2 - GI/Abdominal Exam GI & Abdominal Exam: Normal Bowel Sounds, Soft. absent: Tenderness - Extremities Exam Extremities exam: normal inspection - Neurological Exam Neurological exam: Alert, Oriented x3 - Psychiatric Exam Psychiatric exam: Normal Affect, Normal Mood - Skin Skin Exam: Normal Color Discharge Plan - Discharge Medications Prescriptions: Cefuroxime Axetil [Cefuroxime] 250 mg PO BID 10 Days tablet - Follow Up Plan Condition: FAIR Disposition: HOME/ ROUTINE Instructions: Urinary Tract Infection in Men (DC) Referrals: Therese Johnson MD [Staff Provider] -
--- NOTE | 2018-04-16 12:17 | CARD ---
APPROVED REPORT EKG Measurement Heart [id number] <Conclusion> Normal sinus rhythm Low voltage QRS Borderline ECG
--- NOTE | 2018-04-16 12:26 | CARD ---
APPROVED REPORT EKG Measurement Heart [id number] <Conclusion> Sinus bradycardia Low voltage QRS Borderline ECG
== END 2018-04-15 20:03 | disposition home or self-care (01) | DRG 694 ==
LOC: C.ER 07:18 → C.9E 13:14 → C.3T 14:35
PROVIDERS: ADMIT Internal Medicine; ATTEND Internal Medicine
DX: N13.30 Unspecified hydronephrosis (principal); I31.3 Pericardial effusion (noninflammatory); D63.8 Anemia in other chronic diseases classified elsewhere; E03.9 Hypothyroidism, unspecified; G35 Multiple sclerosis; K56.41 Fecal impaction; N18.4 Chronic kidney disease, stage 4 (severe); N39.0 Urinary tract infection, site not specified; N40.0 Benign prostatic hyperplasia without lower urinary tract symptoms; Z74.01 Bed confinement status; Z87.891 Personal history of nicotine dependence; Z96.649 Presence of unspecified artificial hip joint; K40.90 Unilateral inguinal hernia, without obstruction or gangrene, not specified as recurrent